=== PATIENT | female | born 1955 | race Caucasian/White ===

== ENCOUNTER 2023-10-19 07:57 | Observation (INO) | payer MEDICARE ==
[2023-10-19] MEDS ORDERED: Acetaminophen 500 MG TAB ONE (08:36)
[2023-10-19] MEDS ORDERED: Lisinopril 10 MG TAB ONE (08:36)
[2023-10-19 08:38] LABS: #Eosinphils 0.1 thou/uL (0.0-0.7); #Monocytes 0.5 thou/uL (0.11-0.59); #Neutrophils 2.2 thou/uL (1.40-6.50); %Basophils 0.8 % (0.0-1.0); %Eosinophils 2.5 % (0.0-10.0); %Lymphocytes 41.9 % (21.0-51.0); %Monocytes 9.8 % (0.0-10.0); %Neutrophils 44.8 % (42.0-75.0); Hematocrit 37.7 % (36.0-47.0); Hemoglobin 12.3 g/dL (12.0-16.0); Mean Corpuscular HGB CONC 32.6 g/dL (32.0-36.0); Mean Corpuscular Hemoglobin 31.9 pg (27.0-31.0); Mean Corpuscular Volume 97.9 fl (78.0-98.0); Mean Platelet Volume 11.5 fL (7.4-10.4); Platelet Count 204 10x3/uL (130-400); RBC Distribution Width 14.1 % (11.5-14.5); Red Blood Cell (RBC) Count 3.85 mill/uL (4.20-5.40); White Blood Cell (WBC) Count 4.8 10x3/uL (4.8-10.8)
[2023-10-19 09:03] LABS: ALT (SGPT) 14 U/L (8-55); AST (SGOT) 18 U/L (5-34); Alkaline Phosphatase 46 U/L (40-110); Anion Gap 11 mmol/L (10-20); BUN (Urea Nitrogen) 19 mg/dL (9.8-20.1); Bilirubin, Total 0.4 mg/dL (0.2-1.2); Calc. Creatinine Clearance 0 mL/min (70-130); Calcium 9.7 mg/dL (7.8-10.44); Carbon Dioxide 26 mmol/L (23-31); Chloride 107 mmol/L (98-107); Estimated GFR 63; Globulin 4.7 g/dL (2.4-3.5); Glucose 97 mg/dL (80-115); Potassium 4.9 mmol/L (3.5-5.1); Protein, Total 8.7 g/dL (5.8-8.1); Sodium 139 mmol/L (136-145)
[2023-10-19 09:06] LABS: Troponin I 0.012 ng/mL (< 0.028)
[2023-10-19] MEDS ORDERED: Ibuprofen 800 MG TAB ONE (09:17)
[2023-10-19] MEDS ORDERED: Calcium Carbonate 500 MG ChewTAB PO PRN (12:56)
[2023-10-19] MEDS ORDERED: Senokot S 8.6-50 MG TAB PO PRN (12:56)
[2023-10-19] MEDS ORDERED: Acetaminophen 325 MG TAB PO PRN (12:56)
[2023-10-19] MEDS ORDERED: Ondansetron PF 4 MG/2 ML Vial IVP PRN (12:56)
[2023-10-19 13:20] LABS: Troponin I Less than 0.010 ng/mL (< 0.028)
[2023-10-19 17:30] VITALS: BMI 30.2
[2023-10-19 18:25] LABS: Troponin I Less than 0.010 ng/mL (< 0.028)
[2023-10-19] MEDS: FLU VACC QS2023(65UP)/MF59C/PF 60 MCG/0.5 ML SYRINGE IM ONE (18:45)
[2023-10-19] MEDS: Atorvastatin Calcium 20 MG TAB PO SCH (21:35)
[2023-10-20 06:58] LABS: #Basophils 0.1 thou/uL (0.0-0.2); #Eosinphils 0.2 thou/uL (0.0-0.7); #Monocytes 0.6 thou/uL (0.11-0.59); #Neutrophils 2.7 thou/uL (1.40-6.50); %Basophils 1.2 % (0.0-1.0); %Eosinophils 3.4 % (0.0-10.0); %Lymphocytes 37.8 % (21.0-51.0); %Monocytes 10.9 % (0.0-10.0); %Neutrophils 46.4 % (42.0-75.0); Hematocrit 35.7 % (36.0-47.0); Hemoglobin 11.7 g/dL (12.0-16.0); Mean Corpuscular HGB CONC 32.8 g/dL (32.0-36.0); Mean Corpuscular Hemoglobin 32.1 pg (27.0-31.0); Mean Corpuscular Volume 98.1 fl (78.0-98.0); Mean Platelet Volume 11.2 fL (7.4-10.4); Platelet Count 201 10x3/uL (130-400); Red Blood Cell (RBC) Count 3.64 mill/uL (4.20-5.40); White Blood Cell (WBC) Count 5.9 10x3/uL (4.8-10.8)
[2023-10-20 07:11] LABS: Hemoglobin A1c 5.8 % (4.0-6.0)
[2023-10-20 07:29] LABS: ALT (SGPT) 11 U/L (8-55); AST (SGOT) 15 U/L (5-34); Albumin 3.7 g/dL (3.4-4.8); Alkaline Phosphatase 46 U/L (40-110); Anion Gap 9 mmol/L (10-20); BUN (Urea Nitrogen) 19 mg/dL (9.8-20.1); Bilirubin, Total 0.4 mg/dL (0.2-1.2); Calc. Creatinine Clearance 70 mL/min (70-130); Calcium 9.7 mg/dL (7.8-10.44); Carbon Dioxide 26 mmol/L (23-31); Chloride 108 mmol/L (98-107); Estimated GFR 64; Globulin 4.1 g/dL (2.4-3.5); Glucose 101 mg/dL (80-115); Potassium 4.6 mmol/L (3.5-5.1); Protein, Total 7.8 g/dL (5.8-8.1); Sodium 138 mmol/L (136-145)
[2023-10-20 08:12] VITALS: TEMP 98.1
[2023-10-20] MEDS: Aspirin 81 mg Enteric Coated Tablet PO SCH (08:30)
[2023-10-20] MEDS: Lisinopril 20 MG TAB PO SCH (08:30)
[2023-10-20] MEDS: Enoxaparin 40 MG (0.4 mL) SYRINGE SC SCH (08:31)
[2023-10-20 08:32] VITALS: BP 156/72
[2023-10-20] MEDS ORDERED: ADENOSINE 60 MG/20 ML SDV ONE (10:53)
== END 2023-10-20 16:15 | disposition home or self-care (01) ==
LOC: ERS 07:57 → SUATTDRO 07:57 → ERHOLD 12:47 → 2SW 17:25
PROVIDERS: ADMIT Internal Medicine; ATTEND Family Medicine
DX: R06.09 Other forms of dyspnea (principal); I08.1 Rheumatic disorders of both mitral and tricuspid valves; E78.5 Hyperlipidemia, unspecified; I10 Essential (primary) hypertension; E66.9 Obesity, unspecified; Z79.899 Other long term (current) drug therapy
CPT/HCPCS: 70450; 71045; 78452; 80053; 83036; 83735; 83880 ×2; 84484 ×2; 85025; 93005; 93017; 93306; 99285; A9502; G0378 ×3; 36415; 84443; J0153